=== PATIENT | female | born 1930 | race Caucasian/White ===

== ENCOUNTER 2020-05-12 19:02 | Emergency (ER) | payer MEDICARE, OTHER ==
[~2020-05-12] VITALS: Ht 157.5 cm; Wt 59.0 kg
[2020-05-12] MEDS ORDERED: ACETAMINOPHEN ES 500 MG TABLET ONE (19:23)
[2020-05-12 19:33] LABS: BASOPHILS # (AUTO) 0.1 /CMM (0.0-0.2); BASOPHILS % (AUTO) 0.9 % (0.0-2.0); EOSINOPHILS % (AUTO) 2.8 % (0.0-6.0); HEMATOCRIT 45 % (33-45); HEMOGLOBIN 14.2 g/dL (11.5-14.8); LYMPHOCYTES # (AUTO) 1.3 /CMM (0.8-4.8); MEAN CORPUSCULAR HGB CONC 32 g/dl (31.0-36.0); MEAN CORPUSCULAR VOLUME 83 fL (82-100); MONOCYTES # (AUTO) 0.6 /CMM (0.1-1.30); MONOCYTES % (AUTO) 7.1 % (2.0-12.0); NEUTROPHILS # (AUTO) 6.3 /CMM (1.8-8.9); NEUTROPHILS % (AUTO) 74.2 % (43.0-81.0); PLATELET COUNT (AUTO) 196 /CMM (150-450); RED BLOOD CELL COUNT(AUTO) 5.44 MIL/uL (4.0-5.2); WHITE BLOOD COUNT (AUTO) 8.5 K/uL (4.3-11.0)
[2020-05-12] MEDS: ACETAMINOPHEN ES 500 MG TABLET PO ONE (19:37)
[2020-05-12] MEDS: IV NS 0.9% 1,000 ML BAG IV ONE (19:37)
--- NOTE | 2020-05-12 19:38 | NUR ---
PATIENT CAME TO ER BED 9 BIB RA C/O BACK PAIN S/P SLIP AND FELL FROM CHAIR. DENIES RICHAR AAOX4. NO SOB. BREATHING EVENLY AND UNLABORED ON ROOM AIR. CONNECTED TO MONITOR.
[2020-05-12 19:43] LABS: CALCIUM, SERUM 9.4 mg/dL (8.5-10.1); CARBON DIOXIDE 26 mmol/L (21-32); CHLORIDE 104 mmol/L (98-107); CREATININE 1.1 mg/dL (0.6-1.3); GLUCOSE 217 mg/dL (74-106); POTASSIUM 4.1 mmol/L (3.5-5.1); SODIUM SERUM 138 mmol/L (136-145); UREA NITROGEN, BLOOD 17 mg/dL (7-18)
--- NOTE | 2020-05-12 20:14 | NUR ---
patient taken to ct.
--- NOTE | 2020-05-12 21:33 | NUR ---
Patient discharged to home in stable condition. Written and verbal after care instructions given. Patient verbalizes understanding of instruction.
--- NOTE | 2020-05-12 21:33 | NUR ---
SON OUTSIDE TO PICK PATIENT UP.
--- NOTE | 2020-05-12 21:33 | NUR ---
IV removed. Catheter intact and site benign. Pressure and 4x4 applied to site. No bleeding noted.
--- NOTE | 2020-05-12 21:33 | NUR ---
[facility] CALLED.
[2020-05-12 21:34] VITALS: BP 132/80
--- NOTE | 2020-05-12 21:35 | NUR ---
REPORT GIVEN TO NAKUL NURSE FOR CONTINUTION OF CARE.
--- NOTE | 2020-05-12 21:52 | NUR ---
[facility] AMB [id number] ETA
--- NOTE | 2020-05-12 22:45 | NUR ---
REPORT GIVEN TO [facility] FOR [facility].
== END 2020-05-12 21:34 | disposition home or self-care (01) ==
LOC: ER 19:05
DX: S09.8XXA Other specified injuries of head, initial encounter (principal); M54.9 Dorsalgia, unspecified; E78.5 Hyperlipidemia, unspecified; E11.9 Type 2 diabetes mellitus without complications; K21.9 Gastro-esophageal reflux disease without esophagitis; Z98.890 Other specified postprocedural states; Z88.2 Allergy status to sulfonamides; Z88.5 Allergy status to narcotic agent; W07.XXXA Fall from chair, initial encounter; Y93.89 Activity, other specified; Y92.89 Other specified places as the place of occurrence of the external cause; Y99.8 Other external cause status
CPT/HCPCS: 36415; 70450; 71045; 72125; 80048; 84484; 85025; 93005; 99285; J7030

== ENCOUNTER 2020-11-07 18:42 | Emergency (ER) | payer OTHER ==
[~2020-11-07] VITALS: Ht 152.4 cm; Wt 68.0 kg
--- NOTE | 2020-11-07 19:33 | NUR ---
CALLED JESSE (DAUGHTER) [employer] MAN AT 1950
--- NOTE | 2020-11-07 20:30 | NUR ---
Patient discharged to home in stable condition. Written and verbal after care instructions given. Patient verbalizes understanding of instruction. PT ambulatory with a steady gait and instructed not to drive. Pt family picked up pt and also given d/c instuctions
[2020-11-07 21:27] VITALS: BP 157/94
== END 2020-11-07 19:45 | disposition home or self-care (01) ==
LOC: ER 18:47
DX: S42.291A Other displaced fracture of upper end of right humerus, initial encounter for closed fracture (principal); E78.5 Hyperlipidemia, unspecified; K21.9 Gastro-esophageal reflux disease without esophagitis; E11.9 Type 2 diabetes mellitus without complications; Z98.890 Other specified postprocedural states; Z88.5 Allergy status to narcotic agent; Z88.2 Allergy status to sulfonamides; W01.0XXA Fall on same level from slipping, tripping and stumbling without subsequent striking against object, initial encounter; Y93.89 Activity, other specified; Y92.89 Other specified places as the place of occurrence of the external cause; Y99.8 Other external cause status
CPT/HCPCS: 73020